=== PATIENT | female | born 1975 | race Caucasian/White ===

== ENCOUNTER 2017-10-20 22:31 | Emergency (ER) | payer OTHER ==
[2017-10-20] MEDS ORDERED: IPRATROPIUM/ALBUTEROL 3 ML VIAL NEB ONE ×2 (23:00→23:01)
--- NOTE | 2017-10-20 23:17 | RAD ---
EXAM DESCRIPTION: 2 views of the chest CLINICAL HISTORY: cough, shortness of breath, pt wheezing COMPARISON: 01/01/2015 FINDINGS: Frontal and lateral views of the chest. The cardiomediastinal silhouette has normal size and contour. Mild parahilar peribronchial interstitial thickening. No pneumothorax or pleural effusion. No acute osseous abnormalities. Upper abdominal soft tissues are unremarkable. IMPRESSION: 1. Mild parahilar peribronchial interstitial thickening. These findings could be seen with reactive airways disease, viral bronchitis or interstitial pneumonia. Electronically signed by: Kamari Pablo 10/20/2017 11:16 PM CDT
--- NOTE | 2017-10-20 23:48 | ED.PDOC ---
History of Present Illness - General Chief Complaint: Respiratory Problem Stated Complaint: short of breath, cough, and shakes Time Seen by Provider: 10/20/17 23:04 Source: patient Exam Limitations: no limitations - History of Present Illness Initial Comments: Patient presents with cough and congestion for 3 days. Her cough is non- productive but it is getting worse. She had "the sweats" two days ago but has not measured a temperature. Denies ST or sick contacts. Smokes cigarettes. No other complaints. Timing/Duration: other - 3 days Severity: moderate Improving Factors: nothing Worsening Factors: nothing Associated Symptoms: denies symptoms Allergies/Adverse Reactions: Allergies NO KNOWN ALLERGY Allergy (Verified 12/27/15 08:09) Home Medications: Ambulatory Orders Benzonatate Perles [Tessalon Perles] 100 mg PO Q8HRS PRN #30 cap 10/21/17 Cefdinir [Omnicef] 300 mg PO BID #7 cap 10/21/17 Prednisone [Deltasone] 20 mg PO DAILY #5 tab 10/21/17 Review of Systems - Review of Systems Constitutional: States: no symptoms reported EENTM: States: nose congestion Respiratory: States: see HPI Cardiology: States: no symptoms reported Gastrointestinal/Abdominal: States: no symptoms reported Genitourinary: States: no symptoms reported Musculoskeletal: States: no symptoms reported Skin: States: no symptoms reported Neurological: States: no symptoms reported Endocrine: States: no symptoms reported Hematologic/Lymphatic: States: no symptoms reported Past Medical History (General) - Patient Medical History Hx Stroke: No Hx Asthma: No Hx Congestive Heart Failure: No Hx Hypertension: No Hx Diabetes: No Hx Cancer: No Hx Hepatitis C: No Surgical History: other - Vaccination History Hx Tetanus, Diphtheria Vaccination: No Hx Influenza Vaccination: No Hx Pneumococcal Vaccination: No - Social History Hx Tobacco Use: Yes Hx Chewing Tobacco Use: No Hx Alcohol Use: Yes - occ Hx Substance Use: No Hx Substance Use Treatment: No Hx Depression: No Hx Physical Abuse: No Hx Emotional Abuse: No Hx Suspected Abuse: No - Female History Patient : No Family Medical History - Family History Mother Family History: Unknown Living Status: Still Living Physical Exam - Physical Exam General Appearance: Alert Eye Exam: bilateral normal Ears, Nose, Throat: normal ENT inspection Neck: non-tender, full range of motion, supple Respiratory: wheezing - All lung marie Cardiovascular/Chest: normal peripheral pulses, regular rate, rhythm, no edema Gastrointestinal/Abdominal: normal bowel sounds, non tender, soft Back Exam: normal inspection, no CVA tenderness Extremity: normal range of motion, non-tender, normal inspection 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 Patient was given Rocephin 1 gram IM x one, Solumedrol 60 mg IM x one, and Tessalon Perrles 100 mg po x one. Sent home with RX for prednisone, Omnicef, and Tessalon for what is likely a developing pneumonia and undiagnosed COPD. Care instructions given. E.D. warnings given. Questions were elicited and answered. Patient voiced understanding and agreement with the plan. Laboratory Tests 10/20/17 10/20/17 23:21 23:21 WBC 10.9 H RBC 4.28 Hgb 12.8 Hct 39.0 MCV 90.9 MCH 29.9 MCHC 32.9 L RDW 14.3 Plt Count 191 MPV 9.9 Absolute Neuts (auto) 7.00 H Absolute Lymphs (auto) 2.90 Absolute Monos (auto) 0.50 Absolute Eos (auto) 0.50 H Absolute Basos (auto) 0.00 Neutrophils % 64.3 Lymphocytes % 26.3 Monocytes % 5.0 Eosinophils % 4.2 Basophils % 0.2 Sodium 140 Potassium 3.7 Chloride 104 Carbon Dioxide 27 Anion Gap 12.7 BUN 9 Creatinine 0.54 L BUN/Creatinine Ratio 16.7 Random Glucose 126 H Serum Osmolality 279.6 Calcium 9.1 Departure - Departure Clinical Impression: Pneumonia Disposition: Discharge to Home or Self Care Condition: Good Departure Forms: ED Discharge - Pt. Copy, Patient Portal Self Enrollment Diet: resume usual diet Activity: increase activity as tolerated Referrals: Tere Aquino NP [Primary Care Provider] - 1-2 Weeks Prescriptions: Benzonatate Perles [Tessalon Perles] 100 mg PO Q8HRS PRN #30 cap PRN Reason: Cough Cefdinir [Omnicef] 300 mg PO BID #7 cap Prednisone [Deltasone] 20 mg PO DAILY #5 tab Home Medications: Ambulatory Orders Benzonatate Perles [Tessalon Perles] 100 mg PO Q8HRS PRN #30 cap 10/21/17 Cefdinir [Omnicef] 300 mg PO BID #7 cap 10/21/17 Prednisone [Deltasone] 20 mg PO DAILY #5 tab 10/21/17 Additional Instructions: Take medications as prescribed. Return to the E.R. for fever or shortness of breath. See your regular doctor in 5-7 days for a recheck of your lungs.
[2017-10-21 00:29] VITALS: O2SAT 96
[2017-10-21] MEDS ORDERED: BENZONATATE PERLES 100 MG CAP PO ONE (00:32)
[2017-10-21] MEDS ORDERED: methylPREDNISolone SODIUM SUC 125 MG/2 ML VIAL IM ONE (00:32)
[2017-10-21] MEDS ORDERED: cefTRIAXone SODIUM 1 GM VIAL IM ONE (00:33)
[2017-10-21 01:01] VITALS: BP 148/87; TEMP 97.8
== END 2017-10-21 01:01 | disposition home or self-care (01) ==
LOC: ER 22:31
DX: J18.9 Pneumonia, unspecified organism (principal); Z87.891 Personal history of nicotine dependence
CPT/HCPCS: 71046; 80048; 85025; 94640; J0696; J2930; J7620

== ENCOUNTER 2018-06-15 19:29 | Emergency (ER) | payer OTHER ==
[2018-06-15] MEDS ORDERED: CHLORHEXIDINE GLUCONATE 4 % 15 ML UD TOP ONE (19:39)
[2018-06-15] MEDS ORDERED: TETANUS,DIPHTHERIA,PERTUSSIS 1 EA SYG IM ONE (20:08)
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
[2018-06-15 20:40] VITALS: BP 147/102; TEMP 98.9; O2SAT 98
== END 2018-06-15 20:40 | disposition home or self-care (01) ==
LOC: ER 19:29
DX: S91.012A Laceration without foreign body, left ankle, initial encounter (principal); W23.0XXA Caught, crushed, jammed, or pinched between moving objects, initial encounter; Z87.891 Personal history of nicotine dependence; Z88.0 Allergy status to penicillin; Y92.9 Unspecified place or not applicable